=== PATIENT | female | born 1985 | race African-American/Black ===

== ENCOUNTER 2016-09-13 16:00 | Emergency (ER) | payer MEDICAID ==
--- NOTE | 2016-09-13 16:34 | ER Document Report ---
ED Medical Screen (RME) - General Chief Complaint: Abdominal Swelling Stated Complaint: ABDOMINAL PAIN Notes: patient p/w stomach distension and vomiting previous surgery tummy tuck and previous symptoms like this were a seroma that required drain placement I have greeted and performed a rapid initial assessment of this patient. A comprehensive ED assessment and evaluation of the patient, analysis of test results and completion of the medical decision making process will be conducted by additional ED providers. TRAVEL OUTSIDE OF THE [place] IN LAST 30 DAYS: No - Related Data Allergies/Adverse Reactions: No Known Allergies Allergy (Verified 09/13/16 16:27) Past Medical History - Social History Chew tobacco use (# tins/day): No Frequency of alcohol use: None Drug Abuse: None Family history: Reviewed & Not Pertinent Pulmonary Medical History: Reports: Hx Asthma - as child Renal/ Medical History: Denies: Hx Peritoneal Dialysis Past Surgical History: Reports: Hx Abdominal Surgery - tummy tuck, lipo - Immunizations Hx Diphtheria, Pertussis, Tetanus Vaccination: Yes
[2016-09-13 18:10] LABS: ABSOLUTE EOSINOPHILS # (AUTO) 0.1 10^3/uL (0.0-0.6); ABSOLUTE LYMPHOCYTES (AUTO) 2.3 10^3/uL (0.5-4.7); ABSOLUTE MONOCYTES (AUTO) 0.4 10^3/uL (0.1-1.4); ABSOLUTE NEUT (AUTO) 3.1 10^3/uL (1.7-8.2); BASOPHILS % (AUTO) 0.6 % (0-2); EOSINOPHILS % (AUTO) 1.4 % (0-6); HEMATOCRIT 38.4 % (36.0-47.0); HEMOGLOBIN 12.6 g/dL (12.0-15.5); HGB HCT DIFFERENCE -0.6; LYMPHOCYTES % (AUTO) 38.5 % (13-45); MEAN CORPUSCULAR HEMOGLOBIN 28.5 pg (27.0-33.4); MEAN CORPUSCULAR HGB CONC 32.9 g/dL (32.0-36.0); MEAN CORPUSCULAR VOLUME 87 fl (80-97); MONOCYTES % (AUTO) 7.2 % (3-13); RED BLOOD COUNT 4.42 10^6/uL (3.72-5.28); SEGMENTED NEUTROPHILS % (AUTO) 52.3 % (42-78)
[2016-09-13 18:30] LABS: ALANINE AMINOTRANSFERASE 22 U/L (9-52); ALBUMIN 4.6 g/dL (3.5-5.0); ALKALINE PHOSPHATASE 78 U/L (38-126); ANION GAP 15 (5-19); ASPARTATE AMINO TRANSFERASE 21 U/L (14-36); BILIRUBIN,TOTAL 0.5 mg/dL (0.2-1.3); BLOOD UREA NITROGEN 7 mg/dL (7-20); CALCIUM 9.3 mg/dL (8.4-10.2); CARBON DIOXIDE 21 mmol/L (22-30); CHLORIDE 105 mmol/L (98-107); CREATININE RESULT 0.58 mg/dL (0.52-1.25); GLUCOSE 91 mg/dL (75-110); LIPASE 218.6 U/L (23-300); POTASSIUM 4.1 mmol/L (3.6-5.0); SODIUM 140.7 mmol/L (137-145); TOTAL PROTEIN 7.7 g/dL (6.3-8.2)
[2016-09-13 20:10] LABS: APPEARANCE,URINE CLEAR; BILIRUBIN,URINE NEGATIVE (NEGATIVE); GLUCOSE, URINE NEGATIVE (NEGATIVE); KETONES,URINE NEGATIVE (NEGATIVE); LEUKOCYTE ESTERASE,URINE NEGATIVE (NEGATIVE); NITRITE,URINE NEGATIVE (NEGATIVE); PROTEIN,URINE NEGATIVE (NEGATIVE); UROBILINOGEN,URINE NEGATIVE mg/dL (<2.0)
--- NOTE | 2016-09-13 20:15 | ER Document Report ---
ED GI/ - General Chief Complaint: Abdominal Swelling Stated Complaint: ABDOMINAL PAIN Time seen by provider: 20:13 Notes: Patient is a 31-year-old female that comes emergency department for chief complaint of abdominal bloating and pain, patient states pain is worse when she tries to eat and if she eats a large amount she vomits. And states that she had a viral illness with coughing and vomiting about a week ago, states that since that time she has had these symptoms. Patient states that she is worried that she has a returned seroma, states that she had a abdominoplasty procedure in the [place] in January 2016, she states a couple of months later she had a seroma that she had to have drainage tubes placed. Patient states she had a normal bowel movement yesterday. TRAVEL OUTSIDE OF THE [place] IN LAST 30 DAYS: No - Related Data Allergies/Adverse Reactions: No Known Allergies Allergy (Verified 09/13/16 16:27) Past Medical History - General Information source: Patient - Social History Smoking Status: Never Smoker Chew tobacco use (# tins/day): No Frequency of alcohol use: None Drug Abuse: None Lives with: Family Family History: Reviewed & Not Pertinent Patient has suicidal ideation: No Patient has homicidal ideation: No Pulmonary Medical History: Reports: Hx Asthma - as child Renal/ Medical History: Denies: Hx Peritoneal Dialysis Past Surgical History: Reports: Hx Abdominal Surgery - tummy tuck, lipo - Immunizations Hx Diphtheria, Pertussis, Tetanus Vaccination: Yes Review of Systems - Review of Systems Constitutional: No symptoms reported EENT: No symptoms reported Cardiovascular: No symptoms reported Respiratory: No symptoms reported Gastrointestinal: See HPI Genitourinary: No symptoms reported Female Genitourinary: No symptoms reported Musculoskeletal: No symptoms reported Skin: No symptoms reported Hematologic/Lymphatic: No symptoms reported Neurological/Psychological: No symptoms reported Physical Exam - Vital signs Vitals: Temp Pulse Resp BP Pulse Ox 98.1 F 77 20 147/84 H 100 09/13/16 16:29 09/13/16 16:29 09/13/16 16:29 09/13/16 16:29 09/13/16 16:29 Interpretation: Normal - General General appearance: Appears well, Alert In distress: None - HEENT Head: Normocephalic, Atraumatic Eyes: Normal Conjunctiva: Normal Extraocular movements intact: Yes Eyelashes: Normal Pupils: PERRL Sinus: Normal Nasal: Normal Mouth/Lips: Normal Mucous membranes: Normal Pharynx: Normal Neck: Normal - Respiratory Respiratory status: No respiratory distress Chest status: Nontender Breath sounds: Normal Chest palpation: Normal - Cardiovascular Rhythm: Regular Heart sounds: Normal auscultation Murmur: No - Abdominal Inspection: Other - Old scar in the right mid abdomen, otherwise unremarkable Distension: No distension Bowel sounds: Normal Tenderness: Nontender. No: Tender, Guarding, Rebound Organomegaly: No organomegaly - Back Back: Normal, Nontender. No: Tender - Extremities General upper extremity: Normal inspection, Nontender, Normal strength, Normal temperature General lower extremity: Normal inspection, Nontender, Normal strength, Normal temperature - Neurological Neuro grossly intact: Yes Cognition: Normal Orientation: AAOx4 Abigail Coma Scale Eye Opening: Spontaneous [place] Coma Scale Verbal: Oriented [place] Coma Scale Motor: Obeys Commands [place] Coma Scale Total: 15 Speech: Normal Motor strength normal: LUE, RUE, LLE, RLE Sensory: Normal - Psychological Associated symptoms: Normal affect, Normal mood - Skin Skin Temperature: Warm Skin Moisture: Dry Skin Color: Normal Course - Re-evaluation Re-evalutation: Patient with a nontender soft abdomen, CBC, chemistries unremarkable, vital signs unremarkable, patient just had episodes of coughing and vomiting and she states that she feels like her abdomen is "sore". No swelling noted to the abdomen on examination. Patient having difficulty with food, states she gets nauseated and sometimes vomits afterwards. CAT scan not urgently indicated in this patient. Patient did want this, I discussed with Dr. Walker, she recommends possible acute abdominal series and treatment with antacid medication , patient declines acute abdominal series, she does agree to antacid therapy for suspected gastroenteritis. Discussed return precautions including severe abdominal pain, intractable vomiting, black or bloody bowel movements, fever, or any other concerning symptoms. Patient states understanding and agreement. - Vital Signs Vital signs: Temp Pulse Resp BP Pulse Ox 98.1 F 77 20 147/84 H 100 09/13/16 16:29 09/13/16 16:29 09/13/16 16:29 09/13/16 16:29 09/13/16 16:29 - Laboratory Result Diagrams: 09/13/16 17:50 09/13/16 17:50 Laboratory results interpreted by me: 09/13/16 17:50 Carbon Dioxide 21 L Discharge - Discharge Clinical Impression: Abdominal pain Qualifiers: Abdominal location: periumbilical Qualified Code(s): R10.33 - Periumbilical pain Vomiting Qualifiers: Vomiting type: unspecified Vomiting Intractability: non-intractable Nausea presence: with nausea Qualified Code(s): R11.2 - Nausea with vomiting, unspecified Condition: Stable Disposition: HOME, SELF-CARE Additional Instructions: Your workup, examination, and clinical picture most consistent with inflammation of your stomach and small intestines with remaining symptoms after your illness. Take Carafate and Zantac as directed, continue bland food until symptoms resolve and then progress. Follow-up with primary care. Please return immediately to the emergency department for any concerning or worsening symptoms including uncontrolled vomiting, severe abdominal pain, black or bloody bowel movements, or any other concerning symptoms. Prescriptions: Ranitidine HCl [Zantac 150 mg Tablet] 150 mg PO BID #30 tablet Sucralfate [Carafate 1 gm Tablet] 1 gm PO QID #40 tablet
[2016-09-13] MEDS ORDERED: FAMOTIDINE 20 MG TABLET PO ONE (20:36)
[2016-09-13] MEDS ORDERED: SUCRALFATE 1 GM TABLET PO ONE (20:36)
[2016-09-13 21:20] VITALS: BP 147/84
== END 2016-09-13 20:50 | disposition home or self-care (01) ==
LOC: ER 16:00
DX: R10.33 Periumbilical pain (principal); R11.2 Nausea with vomiting, unspecified; R05 Cough; Z98.890 Other specified postprocedural states
CPT/HCPCS: 99284; 36415; 87086; 83690; 85025; 81025; 80053; 81001; J3490 ×2

== ENCOUNTER → 2016-12-20 | Outpatient (CLI) | payer MEDICAID | LOC: OD 15:05 | PROVIDERS: ATTEND Family Medicine | DX: R06.02 Shortness of breath (principal) | CPT/HCPCS: 71020 ==

== ENCOUNTER 2017-03-28 15:56 | Emergency (ER) | payer MEDICAID ==
--- NOTE | 2017-03-28 16:35 | ER Document Report ---
ED Medical Screen (RME) - General Chief Complaint: Dizziness Stated Complaint: DIZZINESS Time Seen by Provider: 03/28/17 16:34 Notes: Patient presents with dizziness for 2 days. She states that the dizziness occurs both with exertion and rest. She states that she was recently started on control pills for heavy menses from fibroids. She states that she has been anemic in the past but has not been transfused. She does not currently take iron pills. No vomiting or diarrhea. TRAVEL OUTSIDE OF THE [place] IN LAST 30 DAYS: No - Related Data Allergies/Adverse Reactions: No Known Allergies Allergy (Verified 03/28/17 16:17) Past Medical History - Social History Chew tobacco use (# tins/day): No Frequency of alcohol use: None Drug Abuse: None Family history: Reviewed & Not Pertinent Pulmonary Medical History: Reports: Hx Asthma - as child Renal/ Medical History: Denies: Hx Peritoneal Dialysis Past Surgical History: Reports: Hx Abdominal Surgery - tummy tuck, lipo - Immunizations Hx Diphtheria, Pertussis, Tetanus Vaccination: Yes Physical Exam - Vital signs Vitals: Temp Pulse Resp BP Pulse Ox 98.3 F 78 14 148/64 H 100 03/28/17 16:17 03/28/17 16:17 03/28/17 16:17 03/28/17 16:17 03/28/17 16:17 Course - Vital Signs Vital signs: Temp Pulse Resp BP Pulse Ox 98.3 F 78 14 148/64 H 100 03/28/17 16:17 03/28/17 16:17 03/28/17 16:17 03/28/17 16:17 03/28/17 16:17
[2017-03-28 16:57] LABS: ABSOLUTE LYMPHOCYTES (AUTO) 2.4 10^3/uL (0.5-4.7); ABSOLUTE MONOCYTES (AUTO) 0.6 10^3/uL (0.1-1.4); ABSOLUTE NEUT (AUTO) 3.6 10^3/uL (1.7-8.2); BASOPHILS % (AUTO) 0.6 % (0-2); EOSINOPHILS % (AUTO) 0.4 % (0-6); HEMATOCRIT 38.6 % (36.0-47.0); HEMOGLOBIN 13.1 g/dL (12.0-15.5); HGB HCT DIFFERENCE 0.7; LYMPHOCYTES % (AUTO) 36.2 % (13-45); MEAN CORPUSCULAR HEMOGLOBIN 29.7 pg (27.0-33.4); MEAN CORPUSCULAR HGB CONC 33.9 g/dL (32.0-36.0); MEAN CORPUSCULAR VOLUME 87 fl (80-97); MONOCYTES % (AUTO) 8.4 % (3-13); RED BLOOD COUNT 4.42 10^6/uL (3.72-5.28); RED CELL DISTRIBUTION WIDTH 12.9 % (11.5-14.0); SEGMENTED NEUTROPHILS % (AUTO) 54.4 % (42-78); WHITE BLOOD COUNT 6.6 10^3/uL (4.0-10.5)
[2017-03-28 17:02] LABS: APPEARANCE,URINE SLIGHTLY-CLOUDY; BILIRUBIN,URINE NEGATIVE (NEGATIVE); GLUCOSE, URINE NEGATIVE (NEGATIVE); KETONES,URINE NEGATIVE (NEGATIVE); LEUKOCYTE ESTERASE,URINE NEGATIVE (NEGATIVE); NITRITE,URINE NEGATIVE (NEGATIVE); PROTEIN,URINE NEGATIVE (NEGATIVE); URINE SPECIFIC GRAVITY 1.031
[2017-03-28] MEDS ORDERED: MECLIZINE HCL 25 MG TABLET PO ONE (17:14)
--- NOTE | 2017-03-28 17:16 | ER Document Report ---
ED Dizziness/Weakness - General Information source: Patient TRAVEL OUTSIDE OF THE [place] IN LAST 30 DAYS: No - HPI Patient complains to provider of: Dizziness Associated symptoms: Other - see above <ZBIGNIEW RHOADES - Last Filed: 03/28/17 17:13> <AUSTIN OVALLE - Last Filed: 03/28/17 18:23> - General Chief Complaint: Dizziness Stated Complaint: DIZZINESS Time Seen by Provider: 03/28/17 16:34 Notes: Patient is a 32 year old female who presents to the ED with complaints of dizziness x2 days. Patient states that the dizziness occurs with both exertion and rest. Patient states she was recently started on control for heavy menses from fibroids. Patient states her movement feels heavy such as moving her arms or walking. Patient states yesterday it came out of nowhere but went away and today she felt like she was going to pass out. Patient states she also has been having some bad abdominal pain. (ZBIGNIEW RHOADES) - Related Data Allergies/Adverse Reactions: No Known Allergies Allergy (Verified 03/28/17 16:17) Past Medical History - General Information source: Patient - Social History Smoking Status: Never Smoker Chew tobacco use (# tins/day): No Frequency of alcohol use: None Drug Abuse: None Family History: Reviewed & Not Pertinent Pulmonary Medical History: Reports: Hx Asthma - as child Renal/ Medical History: Denies: Hx Peritoneal Dialysis Past Surgical History: Reports: Hx Abdominal Surgery - tummy tuck, lipo - Immunizations Hx Diphtheria, Pertussis, Tetanus Vaccination: Yes <ZBIGNIEW RHOADES - Last Filed: 03/28/17 17:13> Review of Systems - Review of Systems Constitutional: No symptoms reported EENT: No symptoms reported Cardiovascular: See HPI, Dizziness, Lightheaded Respiratory: No symptoms reported Gastrointestinal: No symptoms reported Genitourinary: No symptoms reported Female Genitourinary: No symptoms reported Musculoskeletal: No symptoms reported Skin: No symptoms reported Hematologic/Lymphatic: No symptoms reported Neurological/Psychological: No symptoms reported <ZBIGNIEW RHOADES - Last Filed: 03/28/17 17:13> Physical Exam <ZBIGNIEW RHOADES - Last Filed: 03/28/17 17:13> <AUSTIN OVALLE - Last Filed: 07/31/17 18:23> - Vital signs Vitals: Temp Pulse Resp BP Pulse Ox 98.3 F 78 14 148/64 H 100 03/28/17 16:17 03/28/17 16:17 03/28/17 16:17 03/28/17 16:17 03/28/17 16:17 - Notes Notes: GENERAL: Well-appearing, well nourished and in no acute distress. HEAD: Normocephalic, atraumatic. Eyes: Pupils equal, round, and reactive to light. Lateral gaze nystagmus. ENT: Oral mucosa moist, tongue midline. NECK: Full range of motion. Supple without lymphadenopathy. LUNGS: Clear to auscultation bilaterally, no wheezes, rales, or rhonchi. No respiratory distress. HEART: Regular rate and rhythm. No murmurs, gallops, or rubs. ABDOMEN: Soft, non-tender. Non-distended. Bowel sounds present in all 4 quadrants. EXTREMITIES: Normal ROM. No Edema. NEUROLOGICAL: Alert and oriented x3. Normal speech. No focal neurological deficits. PSYCH: Normal affect, normal mood. SKIN: Warm, dry, normal turgor. No rashes or lesions noted. (ZBIGNIEW RHOADES) Course - Laboratory Result Diagrams: 03/28/17 16:50 03/28/17 16:50 <ZBIGNIEW RHOADES - Last Filed: 03/28/17 17:13> - Laboratory Result Diagrams: 03/28/17 16:50 03/28/17 16:50 <AUSTIN OVALLE - Last Filed: 03/28/17 18:23> - Re-evaluation Re-evalutation: 03/28/17 18:21 Patient's dizziness is much improved now after Antivert. She is able to sit up and look about without feeling nearly as dizzy although there is still some dizziness. The nystagmus is not present now. (AUSTIN OVALLE) - Vital Signs Vital signs: Temp Pulse Resp BP Pulse Ox 98.3 F 78 14 148/64 H 100 03/28/17 16:17 03/28/17 16:17 03/28/17 16:17 03/28/17 16:17 03/28/17 16:17 - Laboratory Laboratory results interpreted by me: 03/28/17 03/28/17 16:50 16:50 Chloride 109 H Carbon Dioxide 19 L Total Protein 8.3 H Urine Urobilinogen 2.0 H Urine Ascorbic Acid 40 H Discharge <ZBIGNIEW RHOADES - Last Filed: 03/28/17 17:13> <AUSTIN OVALLE - Last Filed: 03/28/17 18:23> - Discharge Clinical Impression: Vertigo Condition: Stable Disposition: HOME, SELF-CARE Additional Instructions: Vertigo: You have experienced an episode of vertigo -- a whirling dizziness which may be accompanied by nausea and vomiting or staggering. Vertigo is often caused by an irritation of the inner ear, in which case it is called labyrinthitis. It can also be a symptom of a degenerating inner ear, nerve damage, or brain injury. Your physician has evaluated you to determine whether any further testing is necessary. Vertigo is often treated with dramamine or meclizine. These medications are helpful, but stronger medication may be needed if you are vomiting. Rest in bed. You should not drive or operate machinery until completely better. It may take one to three weeks for recovery. If there are new symptoms, such as decreased hearing or vision, severe headache, weakness or faintness, or confusion, call the physician. TAKE THE MEDICATION PRESCRIBED. FOLLOW UP WITH YOUR DOCTOR IF NOT IMPROVING. RETURN TO THE EMERGENCY ROOM IF ANY NEW OR WORSENING SYMPTOMS. Prescriptions: Meclizine HCl [Antivert 25 mg Tablet] 25 mg PO TID PRN #25 tablet PRN Reason: Referrals: ENMA CRUZ MD [Primary Care Provider] - Follow up as needed Scribe Attestation: 03/28/17 18:23 I personally performed the services described in the documentation, reviewed and edited the documentation which was dictated to the scribe in my presence, and it accurately records my words and actions. (AUSTIN OVALLE) Scribe Documentation - Scribe Written by Orville:: orville Hutton, 03/28/2017, [id number] acting as scribe for :: Isabell <ZBIGNIEW RHOADES - Last Filed: 03/28/17 17:13>
[2017-03-28 17:26] LABS: ALANINE AMINOTRANSFERASE 23 U/L (9-52); ALBUMIN 4.6 g/dL (3.5-5.0); ALKALINE PHOSPHATASE 84 U/L (38-126); ANION GAP 14 (5-19); ASPARTATE AMINO TRANSFERASE 21 U/L (14-36); BILIRUBIN,DIRECT 0.3 mg/dL (0.0-0.4); BILIRUBIN,TOTAL 0.6 mg/dL (0.2-1.3); BLOOD UREA NITROGEN 7 mg/dL (7-20); CALCIUM 9.5 mg/dL (8.4-10.2); CARBON DIOXIDE 19 mmol/L (22-30); CHLORIDE 109 mmol/L (98-107); CREATININE RESULT 0.66 mg/dL (0.52-1.25); GLUCOSE 79 mg/dL (75-110); POTASSIUM 4.4 mmol/L (3.6-5.0); SODIUM 141.7 mmol/L (137-145); TOTAL PROTEIN 8.3 g/dL (6.3-8.2)
[2017-03-28 18:33] VITALS: BP 139/86
== END 2017-03-28 18:33 | disposition home or self-care (01) ==
LOC: ER 15:56
DX: R42 Dizziness and giddiness (principal); R10.9 Unspecified abdominal pain
CPT/HCPCS: 36415; 80053; 81001; 81025; 85025; 99284